=== PATIENT | male | born 1965 | race Caucasian/White ===

== ENCOUNTER 2022-05-01 13:44 | Outpatient (CLI) | payer OTHER, SELFPAY ==
[2022-05-01 18:43] LABS: Hematocrit 43.2 % (42.0-52.0); Hemoglobin 14.5 g/dL (14.0-18.0); Mean Corpuscular HGB Conc 33.6 g/dl (32-36); Mean Corpuscular Hemoglobin 30.9 pg (26-34); Mean Corpuscular Volume 92.1 fl (80-100); Mean Platelet Volume 9.6 fl (7.4-10.4); Platelet Count Result 209 k/mm3 (150-375); Red Blood Count 4.69 M/mm3 (4.6-6.20); Red Cell Distribution Width 12.4 % (11.5-14.5); White Blood Count 4.5 K/mm3 (4.5-10.0)
[2022-05-01 19:09] LABS: Rheumatoid Factor < 8.6 IU/ML (<12)
[2022-05-01 19:13] LABS: Erythrocyte Sedimentation Rate 14 mm/hr (0-20)
[2022-05-01 19:18] LABS: LDL Cholesterol Direct 119 mg/dL
[2022-05-01 19:36] LABS: Prostate Specific Antigen 3.3 ng/mL (< OR = 4.0)
[2022-05-01 19:42] LABS: Alanine Aminotransferase 65 U/L (6-50); Alkaline Phosphatase 117 U/L (38-126); Anion Gap 7 mmol/L (8-16); Aspartate Amino Transferase 45 U/L (17-59); Bilirubin,Total 0.6 mg/dL (0.2-1.3); Blood Urea Nitrogen 14 mg/dL (9-20); CRP 1.1 mg/dL (<1.0); Calcium 9.1 mg/dL (8.4-10.2); Carbon Dioxide 32 mmol/L (22-30); Chloride 97 mmol/L (98-107); Cholesterol 202 mg/dL (0-200); Estimated Glomerular Filt Rate > 60; Glucose 100 mg/dL (65-110); HDL Direct 44 mg/dL; Potassium 4.3 mmol/L (3.4-5.0); Sodium 136 mmol/L (137-145); Triglycerides 157 mg/dL (<150)
[2022-05-01 20:10] LABS: Hemoglobin A1C 5.4 % (<5.7)
== END 2022-05-01 13:45 | disposition home or self-care (01) ==
LOC: ANHGOSHLAB 13:45
PROVIDERS: PCP Family Medicine; Visit Provider Family Medicine
DX: E78.5 Hyperlipidemia, unspecified (principal); M19.90 Unspecified osteoarthritis, unspecified site; Z12.5 Encounter for screening for malignant neoplasm of prostate
CPT/HCPCS: 36415; 80053; 80061; 83036; 84153; 85027; 85652; 86038; 86140; 86430; G0103

== ENCOUNTER 2022-06-09 00:22 | Day surgery (SDC) | payer OTHER, SELFPAY ==
[2022-06-01 11:32] VITALS: BMI 26.6
[2022-06-09 06:39] VITALS: BP 136/88; PULSE 83; RESP 18; TEMP 36.1; O2SAT 100; BMI 26.2
[2022-06-09] MEDS: LACTATED RINGERS 1,000 ML 150 ML IV CONT (07:00)
--- NOTE | 2022-06-09 07:33 | WPDANESEPPF ---
Anes - Initial Pre Proc Eval Procedure: Operation Date: 06/09/22 08:00 Proposed Procedures p Colonoscopy - Johnny Mccoy MD Date/Time: 06/09/22 07:33 Surgeon: Johnny Mccoy MD Pre Op Diagnosis: neoplasm screening Patient Data Age: 56 Gender: M Height: 1.8 m Weight: 85.4 kg Last Vital Signs Temp 36.1 C L 06/09/22 06:39 Pulse 83 06/09/22 06:39 Resp 18 06/09/22 06:39 BP 136/88 06/09/22 06:39 Pulse Ox 100 06/09/22 06:39 O2 Del Method Room Air 06/09/22 06:39 Allergies Allergy/AdvReac Type Severity Reaction Status Date / Time No Known Allergies Allergy Verified 06/01/22 11:33 Home Medications Medication Instructions Recorded Confirmed Type calcipotriene 0.005 % scalp See Rx Instructions .Route 11/07/21 06/01/22 Rx solution .COMPLEX #60 mL lisinopril 20 1 tablet PO DAILY #90 tabs 02/03/22 06/01/22 Rx mg-hydrochlorothiazide 12.5 mg tablet clobetasol 0.05 % topical cream 1 applic topical BID 2 weeks #60 05/01/22 06/01/22 Rx grams Centrum Silver Men 1 tablet PO DAILY 06/01/22 06/01/22 History amitriptyline 25 mg tablet 25 mg PO DAILY 06/01/22 06/01/22 History fluticasone propionate 50 1 spray intranasal DAILY 06/01/22 06/01/22 History mcg/actuation nasal spray,suspension krill 1 cap PO DAILY 06/01/22 06/01/22 History kkw-[id number]-vnz-tzg-ht9-tlo-astax 1,500 mg-165 mg-67.5 mg capsule (Krill Oil ([place] 3 and 6)) sildenafil 100 mg tablet 100 mg PO DAILY PRN Erectile 06/01/22 06/01/22 History Dysfunction Patient hx anesthesia problems: none Family hx anesthesia problems: none Results Review: All pre-operative results and documents have been reviewed as part of the pre-operative evaluation. [facility] Past Medical History Medical History (Updated 06/09/22 @ 07:34 by Johnathan Ritchie MD) Arthritis HTN (hypertension), benign Psoriasis Surgical History Surgical History (Updated 05/01/22 @ 13:08 by Angy Hinojosa MA) History of YAG laser capsulotomy of lens (~2021) Family History Family History (Updated 05/01/22 @ 13:09 by Angy Hinojosa MA) Sibling Family history of coronary artery disease Father Family history of hepatitis 2013 Other Cerebrovascular accident Diabetes mellitus Family history of malignant neoplasm Family history of tuberculosis Social History Social History (Updated 05/01/22 @ 13:06 by Angy Hinojosa MA) Smoking packs per day: 0 Smoking cigarettes per day: 0.0 Smoking status: Former smoker Tobacco type: cigarettes Second hand tobacco smoke exposure: No Smoking end date: 04/02/83 Alcohol intake: current Drinks per week: 14 Alcohol use details: beer Substance use: never Substance use type: does not use Lack of Transportation: No Lack of Food: Never True Current Housing: I Have Housing Concerned About Future Housing: No Difficulty Paying Gas/Electric Bills: No Difficulty Paying for Meds: No Currently Unemployed: No Education: High School Diploma/GED Difficulty w/ Childcare or Family Care: No Living arrangements: with family Occupation/Education: occupation 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 Informed Consent: The patient's anesthetic plan and its attendant risks and benefits were discussed with the patient/fa
--- NOTE | 2022-06-09 07:56 | PM.HPGS ---
History of Present Illness History of Present Illness Consent: Risks, benefits, and alternatives have been discussed and questions answered. Patient agrees to proceed with procedure. Chief complaint: neoplasm screening Narrative: Gordo Gutierrez is a 56 year old male here for first screening colonoscopy Review of Systems Constitutional: Constitutional: Denies headache(s) and Denies weakness Eyes: Eyes: Denies blurry vision ENT: Reports Normal hearing present, Denies headache(s) and Denies neck pain Cardiovascular: Cardiovascular: Denies chest pain and Denies dyspnea Respiratory: Respiratory: Denies dyspnea Gastrointestinal: Gastrointestinal: Reports no additional gastrointestinal complaints Genitourinary: Genitourinary: Denies dysuria Musculoskeletal: Musculoskeletal: Denies neck pain Integumentary/Breasts: Skin/Breast: Denies dry skin Neurologic: Reports Normal hearing present, Denies headache(s) and Denies weakness Psychiatric: Psychiatric: Denies anxiety Endocrine: Endocrine: Denies change in body appearance Hematologic/Lymphatic: Hematologic/Lymphatic: Denies easy bleeding Allergic/Immunologic: Allergic/Immunologic: Denies urticaria PMF Past Medical History Medical History (Updated 06/09/22 @ 07:34 by Johnathan Ritchie MD) Arthritis HTN (hypertension), benign Psoriasis Surgical History Surgical History (Updated 05/01/22 @ 13:08 by Angy Hinojosa MA) History of YAG laser capsulotomy of lens (~2021) Family History Family History (Updated 05/01/22 @ 13:09 by Angy Hinojosa MA) Sibling Family history of coronary artery disease Father Family history of hepatitis 2013 Other Cerebrovascular accident Diabetes mellitus Family history of malignant neoplasm Family history of tuberculosis Social History Social History (Updated 05/01/22 @ 13:06 by Angy Hinojosa MA) Smoking packs per day: 0 Smoking cigarettes per day: 0.0 Smoking status: Former smoker Tobacco type: cigarettes Second hand tobacco smoke exposure: No Smoking end date: 04/02/83 Alcohol intake: current Drinks per week: 14 Alcohol use details: beer Substance use: never Substance use type: does not use Lack of Transportation: No Lack of Food: Never True Current Housing: I Have Housing Concerned About Future Housing: No Difficulty Paying Gas/Electric Bills: No Difficulty Paying for Meds: No Currently Unemployed: No Education: High School Diploma/GED Difficulty w/ Childcare or Family Care: No Living arrangements: with family Occupation/Education: occupation 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 Gender identity (if verbalized by the patient): Male Spiritual care concerns: No Meds Home Medications and Allergies Home Medications Medication Instructions Recorded Confirmed Type calcipotriene 0.005 % scalp See Rx Instructions .Route 11/07/21 06/01/22 Rx solution .COMPLEX #60 mL lisinopril 20 1 tablet PO DAILY #90 tabs 02/03/22 06/01/22 Rx mg-hydrochlorothiazide 12.5 mg tablet clobetasol 0.05 % topical cream 1 applic topical BID 2 weeks #60 05/01/22 06/01/22 Rx grams Centrum Silver Men 1 tablet PO DAILY 06/01/22 06/01/22 History amitriptyline 25 mg tablet 25 mg PO DAILY 06/01/22 06/01/22 History fluticasone propionate 50 1 spray intranasal DAILY 06/01/22 06/01/22 History mcg/actuation nasal spray,suspension krill 1 cap PO DAILY 06/01/22 06/01/22 History xnc-oq1-kdr-gwb-tk0-rvd-astax 1,500 mg-165 mg-67.5 mg capsule (Krill Oil ([place] 3 and 6)) sildenafil 100 mg tablet 100 mg PO DAILY PRN Erectile 06/01/22 06/01/22 History Dysfunction Allergies Allergy/AdvReac Type Severity Reaction Status Date / Time No Known Allergies Allergy Verified 06/01/22 11:33 Vital Signs Vital Signs - 24 hr 06/09/22 06:39 Temperature 97 F L Pulse Rate 83 Respiratory Rate 18 Blood Pressure 136
[2022-06-09 08:19] VITALS: BP 117/77; PULSE 78; RESP 16; O2SAT 97
[2022-06-09 08:29] VITALS: BP 106/78; PULSE 76; RESP 18; O2SAT 98
[2022-06-09 08:39] VITALS: BP 111/72; PULSE 74; RESP 18; O2SAT 98
== END 2022-06-09 08:48 | disposition home or self-care (01) ==
PROVIDERS: PCP Family Medicine; Visit Provider Internal Medicine Gastroenterology
PROC: 0DJD8ZZ Inspection of Lower Intestinal Tract, Via Natural or Artificial Opening Endoscopic (ICD-10-PCS; CPT 45378; principal; 2022-06-09 08:00)
DX: Z12.11 Encounter for screening for malignant neoplasm of colon (principal); K57.30 Diverticulosis of large intestine without perforation or abscess without bleeding; I10 Essential (primary) hypertension; K64.8 Other hemorrhoids; L40.9 Psoriasis, unspecified; M19.90 Unspecified osteoarthritis, unspecified site; Z87.891 Personal history of nicotine dependence
CPT/HCPCS: 45378; J2704; J7120

== ENCOUNTER 2024-07-28 17:07 | Outpatient (CLI) | payer OTHER, SELFPAY ==
--- NOTE | ~2024-07-28 | CT_ITS ---
EXAMINATION: CT abdomen pelvis w con DATE: 07/28/2024 17:39 INDICATION: R10.9 - Unspecified abdominal pain TECHNIQUE: Computed tomography (CT) of the abdomen and pelvis was performed with 100 mL Omnipaque-350 intravenous contrast. Automated exposure control and iterative reconstruction technique were employe d. The dose-length product was 431.23 mGy-cm. COMPARISON: None. FINDINGS: Lower thorax: Coronary artery calcifications. Liver: Normal. Biliary/Gallbladder: No gallbladder wall thickening, distention, or surrounding fluid. Irregular 6 mm hyperdensity in the gallbladder fundus/phrygian cap. No bile duct dilation. Pancreas: No mass or duct dilation. Spleen: Normal. Adrenals:No mass. Kidneys: No suspicious mass, obstructing stone, or hydronephrosis. GI tract: No small or large bowel dilation. Normal appendix. Diverticulosis without diverticulitis. Mesentery/Peritoneum: No ascites, mass, or free air. Retroperitoneum: No mass. Atherosclerotic calcifications of intra-abdominal arterial vessels. Pelvis: Distended urinary bladder with mild wall thickening. Enlarged prostate with calcifications. Soft Tissues: Small uncomplicated fat-containing umbilical and bilateral inguinal hernias. Bones: No acute osseous finding. Multilevel degenerative disc disease and facet arthropathy. Moderat e central canal stenosis at L2-3 secondary to degenerative disc and facet change. Multilevel degenera tive lumbar neural foraminal narrowing. IMPRESSION: Distended urinary bladder with mild wall thickening, may be secondary to cystitis or chronic outlet o bstruction from prostatomegaly. Otherwise, no acute abdominopelvic process detected. Focal density in the gallbladder fundus/phrygian cap, may represent sludge, stones, or polyp. No gall bladder inflammatory change. Consider nonemergent right upper quadrant ultrasound for further evaluat ion. Reviewed, dictated and finalized at location K. IMPRESSION: Distended urinary bladder with mild wall thickening, may be secondary to cystit is or chronic outlet obstruction from prostatomegaly. Otherwise, no acute abdominopelvic process detected. Focal density in the gallbladder fundus/phrygian cap, may represent sludge, sto trina, or polyp. No gallbladder inflammatory change. Consider nonemergent right u pper quadrant ultrasound for further evaluation.
[2024-07-28 17:36] LABS: Estimated Glomerular Filt Rate > 60
--- OUTSIDE RECORDS SUMMARY | 2024-07-28 18:30 | XMS_ITS | Clinical Summary ---
Author Organization [facility] Address [address] [address] Care Team Providers Care Audience Coordinator Name Role Phone Pattie Rea MD Primary Care Provider Source Comments [facility],non-owned Affiliates and Associated Physician Practices is amultiple site organization consisting of ambulatory clinics and hospital sitesin [place], [place], [place] and [place]. This disclosure is being madepursuant to the Care Everywhere program and may not contain all information available regarding this patient. Last updated 17.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 Gender Identity Not on file Sexual Orientation Not on file Plan of Treatment Health Maintenance Due Date Last Done Comments COLOGUARD (AGES 45-75) - COL ON CA SCREENING 1964 COLON MONITORING 1964 COLONOSCOPY - COLON CA SCREENING 1964 CT COLONOGRAPHY - COLON CA SCREENING 1964 Colorectal Cancer Screening 1964 FIT - COLON CA SCREENING 1964 FLEX SIG - COLON CA SCREENING 1964 LIPID TESTING 1964 HIV SCREENING 10/20/1979 HEPATITIS C SCREENING 10/15/1982 DTAP/TDAP/TD VACCINES (1 - Tdap) 10/20/1983 HEPATITIS B VACCINE (1 of 3 - 19+ 3-dose series) 10/20/1983 PNEUMOCOCCAL VACCINE 50+ (1 of 1 - PCV) 2014 ZOSTER VACCINE (1 of 2) 2014 COVID-19 VACCINE ( - 2023-2 5 season) 2023 DEPRESSION SCREENING 04/02/2024 INFLUENZA VACCINE (Season Ended) 2024 HIB VACCINE Aged Out No longer eligi ble based on patient's age to complete this topic HPV VACCINE Aged Out No longer eligi ble based on patient's age to complete this topic MENINGOCOCCAL (Group B) VACC INE SHARED DECISION-MAKING Aged Out No longer eligibl e based on patient's age to complete this topic MENINGOCOCCAL GROUPS A/C/Y/W VACCINE Aged Out No longer eligible b ased on patient's age to complete this topic Care Teams Audience Coordinator Relationship Specialty Start Date End Date Pattie Rea MD [address] [place] [phone] PCP - General 11/21/13
--- OUTSIDE RECORDS SUMMARY | 2024-07-28 18:30 | XMS_ITS | Referral Summary ---
Author Organization [facility] [address] Address [address] [place] [id number] Care Team Providers Care Chief Cruiser Name Role Phone Holly Rea MD Primary Care Provider [phone]- [phone] Allergies No known active allergies Medications cholecalciferol (VITAMIN D-3) 1,000 unit tablet take 1 by Oral route every day 90 3 1 Active Additional Information Patient not taking.Reported on 02/22/2022 calcipotriene (DOVONOX) 0.005 % ointment apply by topical route 2 times every day apply twice daily Sunday through Sunday 60 5 5 Active Additional Information Patient not taking.Reported on 02/22/2022 clobetasol (TEMOVATE) 0.05 % ointment apply by topical route every day applying once daily on Sunday and Sunday 60 2 1 Active Additional Information Patient not taking.Reported on 02/22/2022 amLODIPine (NORVASC) 2.5 mg tablet take 1 tablet by oral route every day as needed if blood pressure over 140/90 30 5 6 Active Additional Information Patient not taking.Reported on 02/22/2022 lisinopril-hydr oCHLOROthiazide (PRINZIDE,ZESTO RETIC) 20-12.5 mg per tablet TAKE 1 TABLET BY ORAL ROUTE EVERY DAY 90 0 2 Active amitriptyline (ELAVIL) 25 mg tablet Take 25 mg by mouth daily 2 Active sildenafiL (VIAGRA) 100 mg tablet Take 100 mg by mouth daily as needed 2 Active Active Problems Problem Noted Date Diagnosed Date Psoriasis 08/16/2013 Overview (07/05/2016): Psoriasis Depression 08/16/2013 Overview (07/05/2016): Depression Benign essential hypertension 08/16/2013 Overview (07/05/2016): Benign essential HTN Hyperlipidemia 08/16/2013 Overview (07/05/2016): Hyperlipidemia Male erectile disorder 08/16/2013 Overview (07/06/2016): ED (erectile dysfunction) Seborrhea capitis 08/16/2013 Overview (07/06/2016): Seborrheic dermatitis of scalp Nonalcoholic steatohepatitis (ALCANTARA) 08/16/2013 Overview (07/07/2016): ALCANTARA (nonalcoholic steatohepatitis) Immunizations Immunization Administration Dates Next Due Tdap 03/30/2006 Social History Tobacco Use Types Packs/Day Years Used Date Smoking Tobacco: Former Cigarettes Smokeless Tobacco: Former Tobacco Cessation:Counseling Given: Not Answered Sex and Gender Information Value Date Recorded Sex Assigned at Not on file Legal Sex Male 9:22 AM PRECINCT POLICE 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 Gender Identity Not on file Sexual Orientation Not on file Last Filed Vital Signs Vital Sign Reading Time Taken Comments Blood Pressure 126/78 02/22/2022 7:10 PM PRECINCT POLICE CAPTAIN Pulse 97 02/22/2022 7:10 PM PRECINCT POLICE CAPTAIN Temperature 37 C (98.6 F) 02/22/2022 7:10 PM PRECINCT POLICE CAPTAIN Respiratory Rate 18 02/22/2022 7:10 PM PRECINCT POLICE CAPTAIN Oxygen Saturation 98% 02/22/2022 7:10 PM PRECINCT POLICE CAPTAIN Inhaled Oxygen Concentration - - Weight 90.3 kg (199 lb) 02/22/2022 7:10 PM PRECINCT POLICE CAPTAIN Height 175.3 cm (5' 9.02 ) 02/22/2022 7:10 PM CS T Body Mass Index 29.37 02/22/2022 7:10 PM PRECINCT POLICE CAPTAIN Plan of Treatment Not on file Insurance [facility] Care Teams Chief Cruiser Relationship Specialty Start Date End Date Holly Rea MD PCP - General 02/13/11
--- OUTSIDE RECORDS SUMMARY | 2024-07-28 18:30 | XMS_ITS | Clinical Summary ---
Author Organization [facility] Address [facility] [place] [address] Care Team Providers Care Defence Intelligence Analyst Name Role Phone Unavailable Primary Care Provider Unavailabl e Social History Tobacco Use Types Packs/Day Years Used Date Smoking Tobacco: Never Assessed Sex and Gender Information Value Date Recorded Sex Assigned at Not on file Legal Sex Male 4:38 PM CDT Gender Identity Not on file Sexual Orientation Not on file Plan of Treatment Health Maintenance Due Date Last Done Comments Colorectal Cancer Screening Colonoscopy (10 Years) 1964 Annual Physical 10/20/1967 Hepatitis C 1982 DTaP, Tdap and Td Vaccines ( 1 - Tdap) 10/20/1983 Pneumococcal Vaccine: 50+ Ye ars (1 of 1 - PCV) 2014 Zoster Vaccines (1 of 2) 2014 COVID-19 Vaccine ( - 2023-2 5 season) 2023 Meningococcal B Vaccine Aged Out No l onger eligible based on patient's age to complete this topic Meningococcal Vaccine Aged Out No sky susy eligible based on patient's age to complete this topic RSV Immunizations Under 20 Months Aged Out No longer eligible based on patient's age to complete this topic
--- OUTSIDE RECORDS SUMMARY | 2024-07-28 18:30 | XMS_ITS | Clinical Summary ---
Author Organization [facility] [address] Address [address] [place] [phone] Care Team Providers Care Horticultural Farmer Name Role Phone Holly Rea MD Primary Care Provider [phone]- [phone] Allergies No known active allergies Medications cholecalciferol [...] Immunization Administration Dates Next Due Tdap 03/30/2006 Surgical History Surgery Date Site/Laterality Comments VASECTOMY 1989 Vasectomy Social History Tobacco Use Types Packs/Day Years Used Date Smoking Tobacco: Former Cigarettes Smokeless Tobacco: Former Tobacco Cessation:Counseling Given: Not Answered Sex and Gender Information Value Date Recorded Sex Assigned at Not on file Legal Sex Male 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 CRM DEVELOPER Gender Identity Not on file Sexual Orientation Not on file Obstetrics History Last Filed Vital Signs Vital Sign Reading Time Taken Comments Blood Pressure 126/78 02/22/2022 7:10 PM CRM DEVELOPER Pulse 97 02/22/2022 7:10 PM CRM DEVELOPER Temperature 37 C (98.6 F) 02/22/2022 7:10 PM CRM DEVELOPER Respiratory Rate 18 02/22/2022 7:10 PM CRM DEVELOPER Oxygen Saturation 98% 02/22/2022 7:10 PM CRM DEVELOPER Inhaled Oxygen Concentration - - Weight 90.3 kg (199 lb) 02/22/2022 7:10 PM CRM DEVELOPER Height 175.3 cm (5' 9.02 ) 02/22/2022 7:10 PM CS T Body Mass Index 29.37 02/22/2022 7:10 PM CRM DEVELOPER Plan of Treatment Health Maintenance Due Date Last Done Comments Colon Cancer Screening-Colonoscopy 1964 Depression Screening 1964 Hepatitis C Screening 1964 Prostate Cancer Screening-PSA 1964 Hepatitis B Screening 1982 Regular Well Visit/Exam 18-64 1982 Pneumococcal vaccine <65 (1 of 2 - PCV) 10/20/1983 Zoster Vaccine (1 of 2) 2014 DTaP/Tdap/Td Vaccine (2 - Td or Tdap) 03/30/2016 Covid-19 Vaccine (3 - season) 2023, 06/03/2020 Influenza Vaccine (Season Ended) 2024 Insurance [facility] Address: [facility] [id number] [place] [phone] Care Teams Horticultural Farmer Relationship Specialty Start Date End Date Holly Rea MD PCP - General 02/13/11
== END 2024-07-28 17:08 | disposition home or self-care (01) ==
PROVIDERS: PCP Family Medicine; Visit Provider Nurse Practitioner Family
DX: R10.9 Unspecified abdominal pain (principal)
CPT/HCPCS: 74177; Q9967